=== PATIENT | male | born 1955 | race Caucasian/White ===

== ENCOUNTER 2016-11-07 10:22 | Observation (INO) ==
[2016-11-07] MEDS ORDERED: Ondansetron 4 MG/2 ML VIAL IVP PRN (10:44)
[2016-11-07] MEDS ORDERED: Naloxone 0.4 MG/ML INJ IVP PRN (10:44)
[2016-11-07] MEDS ORDERED: Acetaminophen 325 MG TABLET PO PRN (10:44)
[2016-11-07] MEDS ORDERED: *HR* Promethazine 25 MG/ML VIAL IVP PRN (10:44)
[2016-11-07] MEDS ORDERED: *HR* OxyCODONE Immed Rel 5 MG TABLET PO PRN (10:44)
[2016-11-07] MEDS ORDERED: *HR* HYDROmorphone (PF) 1 MG/ML SYRINGE IVP PRN (10:44)
--- NOTE | 2016-11-07 10:50 | Urology History & Physical ---
Date of Encounter: 11/07/16 Time of Encounter: 10:48 Assessment and Plan (1) Ureteral calculus Current Visit: Yes Status: Acute 61 year old man with a left distal ureteral stone and a left proximal ureteral stone. He has been admitted for pain control. We will see how he does overnight. If his pain persists, we will coordinate a left ureteroscopy, laser lithotripsy and a staged left proximal ureteroscopy and stone extraction with left ureteral stent placement. He was informed of the risks of the surgery which include but are not limited to bleeding, infection, injury to other structures, need for further procedures, incomplete treatment, need for stent, stent irritation, need for nephrostomy tube, need for repair, and the risk of anesthesia. He is willing to proceed. History of Present Illness Chief complaint: Left flank pain HPI: Mr. Mtz is a 61 year old male presents with left flank pain. It started 3- 4 days ago. He has a known history of stones and had left ureteroscopy previously. His pain returned this week. He went to the [facility] and had a CT scan which showed a 6mm distal left ureteral stone. His pain is in the left flank and radiates to the groin. He has noted some nausea. He is still having severe pain and was admitted from my office. Past Med Surg Social Fam HX - Past Medical History Medical history: hyperlipidemia, hypertension, myocardial infarction Psychiatric history: no psych history - Past Surgical History Surgical History: angioplasty/stent - Social History Smoking Status: Current every day smoker Smokeless Tobacco Status: No Alcohol use: none Drug use: none - Family History Mother Hx Family Genitourinary Disorders: No (no stones) Medications and Allergies Aspirin Enteric Coated [Aspirin EC] 81 mg PO DAILY 01/07/16 [History] Atorvastatin [Lipitor] 80 mg PO HS 01/07/16 [History] Clopidogrel [Plavix] 75 mg PO DAILY 01/07/16 [History] Docusate [Colace] 100 mg PO BID #60 capsule 01/07/16 [Rx] Metoprolol XL (24 HR) Succ [Toprol Xl] 25 mg PO HS 01/07/16 [History] Oxycodone HCl/Acetaminophen [Percocet 5-325 mg Tablet] 1 tab PO Q6H PRN [History] Allergies No Known Allergies Allergy (Unverified 01/01/16 11:11) Review of Systems - Constitutional no chills, no fever(s) - EENT Nose, mouth and throat: no dizziness - Cardiovascular no chest pain - Respiratory no dyspnea - Gastrointestinal nausea, no vomiting - Genitourinary flank pain, no hematuria - Musculoskeletal no back pain - Integumentary no erythema, no rash - Neurological no weakness - Psychiatric no suicidal ideation - Hematologic/Lymphatic no easy bleeding - Allergic/Immunologic no wheezing Exam - General physical appearance Present: well developed, well nourished, no distress - Eyes Absent: icteric - ENT Present: normal nares - Neck Present: trachea midline - Respiratory Present: normal respiratory effort - Cardiovascular Cardiovascular exam IM: RRR - Abdomen Abdomen: Present: soft - Genitourinary normal penis with no external lesions Urology Results - Labs 11/07/16 10:58 11/07/16 10:58 All other labs normal. - Imaging CT scan - abdomen: report reviewed, image reviewed CT scan - pelvis: report reviewed, image reviewed
[2016-11-07] MEDS ORDERED: 0.9 % Sodium Chloride 1,000 ML IVC ONE (10:52)
[2016-11-07 11:05] LABS: Basophils % 0.4 %; Eosinophils # 0.1 K/mcL (0.0-0.6); Eosinophils % 1.3 %; Hematocrit 39.8 % (37.5-50.1); Hemoglobin 13.7 g/dL (12.9-16.9); Immature Granulocytes % 0.4 % (0-4); Immature Platelets 9.3 % (1.1-6.1); Lymphocytes # 1.7 K/mcL (0.6-4.6); Lymphocytes % 16.9 %; Mean Corpuscular HGB Conc 34.4 g/dL (31.6-35.5); Mean Corpuscular Hemoglobin 30.2 pg (28.0-33.3); Mean Corpuscular Volume 87.7 fL (83.0-100.0); Mean Platelet Volume 11.1 fL (9.4-12.4); Neutrophils # 7.2 K/mcL (1.6-8.9); Platelet Count 179 K/mcL (140-400); Red Blood Count 4.54 M/mcL (4.19-5.50); Red Cell Distribution Width 13.2 % (11.5-14.5)
[2016-11-07 11:17] LABS: BUN/Creatinine Ratio 11 (6-26); Blood Urea Nitrogen 15 mg/dL (8-26); Calcium 9.2 mg/dL (8.6-10.8); Carbon Dioxide 20 mEq/L (19-29); Chloride 100 mEq/L (98-109); Glucose 113 mg/dL (70-99); Osmolality,Calculated 282 (280-300); Sodium 135 mEq/L (136-145); eGFR For African Americans > 60 (> 60); eGFR For Non-African Americans 56 (> 60)
[2016-11-07] MEDS: 0.9 % Sodium Chloride 1,000 ML IVC SCH ×2 (12:35→21:50)
--- NOTE | 2016-11-07 21:26 | Anesthesia Evaluation PreOp ---
Date of Encounter: 11/07/16 Time of Encounter: 21:27 - Past History Planned Operation: L ureteroscopic stone extraction, stent Cardiac History: DC (inferior wall STEMI 2013 -- 4 stents to RCA (severe 1- vessel CAD per cardiac cath 2013)), HTN, Hyperlipidemia, Cardiac Stent (4 stents RCA 2013), Other (Good functional capacity, can achieve > 4 METS) Pulmonary History: Smoker (occassional) [employer] History: Denies Any Significant HX Other Medical History: Renal (renal stones) Anesthesia History: No Prior Anesthetic Complications, Past Anesthesia (L ureteroscopic stone extraction/stent 01/2016) Alcohol Use: none Drug use: none Medications and Allergies Aspirin Enteric Coated [Aspirin EC] 81 mg PO DAILY 01/07/16 [History] Atorvastatin [Lipitor] 80 mg PO HS 01/07/16 [History] Clopidogrel [Plavix] 75 mg PO DAILY 01/07/16 [History] Docusate [Colace] 100 mg PO BID #60 capsule 01/07/16 [Rx] Metoprolol XL (24 HR) Succ [Toprol Xl] 25 mg PO HS 01/07/16 [History] Oxycodone HCl/Acetaminophen [Percocet 5-325 mg Tablet] 1 tab PO Q6H PRN [History] Allergies No Known Allergies Allergy (Unverified 01/01/16 11:11) - Meds/Allergy Pre-op Review Medications Reviewed: Yes Allergies Reviewed: Yes Beta Blockers on Current Med List: Yes (metoprolol XL) Anesthesia Results - Labs 11/07/16 10:58 11/07/16 10:58 - Imaging EKG: report reviewed, image reviewed (SB with short MD) Anesthesia Exam Last Vital Signs Temp 98.5 F 11/07/16 19:23 Pulse 65 11/07/16 19:23 Resp 14 11/07/16 19:23 BP 129/69 11/07/16 19:23 Pulse Ox 95 11/07/16 19:23 Weight: 72 kg - HEENT Pupil (Motor): Pupils equal, EOMI Mallampati: III Teeth: Normal Oral Opening: Greater than 3 - [employer] LOC: Oriented [employer] Motor: Normal RUE, Normal LUE, Normal RLE, Normal LLE, Normal Face [employer] Sensory: Normal: RUE, LUE, RLE, LLE, Face - Cardiac Rhythm: Regular Murmur: None - Pulmonary Breath Sounds: bilateral Clear Respiratory Effort: Symmetrical Anesthesia Assess/Plan ASA Score: 3 Modified Fleming Scale for Level of Consciousness: Cooperative, oriented, and tranquil Anesthetic Plan: General Monitoring Plan: Standard Monitors Recovery Plan: PACU
[2016-11-08] MEDS: 0.9 % Sodium Chloride 1,000 ML IVC SCH (06:00)
[2016-11-08] MEDS: Levofloxacin 500 MG/100 ML 500 MG/100 ML BAG IVPB SCH ×2 (06:45→07:13)
--- NOTE | 2016-11-08 07:11 | Urology Progress Note ---
Date of Encounter: 11/08/16 Time of Encounter: 07:10 - Assessment and Plan (1) Ureteral calculus Current Visit: Yes Status: Acute Assessment and plan: Left distal ureteral stone, left renal stone. 1. Plan for distal left ureteroscopy followed by staged left ureteroscopy, laser lithotripsy and stent placement. All risks were informed. He is willing to proceed. Levaquin running currently. Progress Note Narrative: Patient hasn't passed stone overnight. He would like to proceed with left ureteroscopy today. Objective Initial Vital Signs Temp Pulse Resp BP Pulse Ox 97.4 F L 65 16 139/78 95 11/07/16 11:10 11/07/16 11:10 11/07/16 11:10 11/07/16 11:10 11/07/16 11:10 - General physical appearance Present: well developed, well nourished, no distress - Respiratory Present: normal respiratory effort - Abdomen Present: soft - Labs 11/07/16 10:58 11/07/16 10:58 Diabetes panel 11/07/16 Range/Units 10:58 Sodium 135 L (136-145) mEq/L Potassium 4.0 (3.5-4.5) mEq/L Chloride 100 (98-109) mEq/L Carbon Dioxide 20 (19-29) mEq/L BUN 15 (8-26) mg/dL Creatinine 1.31 H (0.72-1.25) mg/dL Glucose 113 H (70-99) mg/dL Calcium 9.2 (8.6-10.8) mg/dL Calcium panel 11/07/16 Range/Units 10:58 Calcium 9.2 (8.6-10.8) mg/dL Pituitary panel 11/07/16 Range/Units 10:58 Sodium 135 L (136-145) mEq/L Potassium 4.0 (3.5-4.5) mEq/L Chloride 100 (98-109) mEq/L Carbon Dioxide 20 (19-29) mEq/L BUN 15 (8-26) mg/dL Creatinine 1.31 H (0.72-1.25) mg/dL Glucose 113 H (70-99) mg/dL Calcium 9.2 (8.6-10.8) mg/dL Adrenal panel 11/07/16 Range/Units 10:58 Sodium 135 L (136-145) mEq/L Potassium 4.0 (3.5-4.5) mEq/L Chloride 100 (98-109) mEq/L Carbon Dioxide 20 (19-29) mEq/L BUN 15 (8-26) mg/dL Creatinine 1.31 H (0.72-1.25) mg/dL Glucose 113 H (70-99) mg/dL Calcium 9.2 (8.6-10.8) mg/dL Consult Discharge Plan - Plan Referrals: Ramone Hunter MD [Primary Care Provider] -
[2016-11-08] MEDS ORDERED: *HR* Propofol 200 MG/20 ML VIAL IVP ONE (07:19)
[2016-11-08] MEDS ORDERED: Lidocaine -MPF 2% 2 ML VIAL ONE (07:19)
[2016-11-08] MEDS ORDERED: *HR* FentaNYL (PF) 100 MCG/2 ML VIAL ONE (07:19)
[2016-11-08] MEDS ORDERED: Metoprolol XL (24 HR) Succ 25 MG TAB.ER.24H PO STA (07:23)
[2016-11-08] MEDS ORDERED: Albuterol 2.5 MG/3 ML NEBULIZER ONE (07:39)
[2016-11-08] MEDS ORDERED: Albuterol 2.5 MG/3 ML NEBULIZER IH ONE (07:44)
[2016-11-08] MEDS ORDERED: *HR* HYDROmorphone (PF) 1 MG/ML SYRINGE IVP PRN ×2 (08:22→09:33)
[2016-11-08] MEDS ORDERED: *HR* Meperidine 25 MG/ML SYRINGE IVP PRN (08:22)
[2016-11-08] MEDS ORDERED: Ondansetron 4 MG/2 ML VIAL IVP ONE (08:22)
[2016-11-08] MEDS ORDERED: *HR* Promethazine 25 MG/ML VIAL IVP PRN ×2 (08:22→09:33)
[2016-11-08] MEDS ORDERED: Ringers Solution, Lactated 1,000 ML IVC SCH (08:30)
[2016-11-08] MEDS ORDERED: EPHEDrine 50 MG/ML VIAL ONE (08:31)
--- NOTE | 2016-11-08 08:35 | Operative Note ---
Date of procedure: 11/08/16 Pre-op diagnosis: Left ureteral stone, left renal stone Post-op diagnosis: same Procedure: Left distal ureteroscopy, laser lithotripsy, basket stone extraction, and stent placement. Staged left proximal ureteroscopy and stone extraction. Implants: 4.8 Guine[place] x 26cm JJ stent. Complications: none. Anesthesia: GETA Surgeon: Heraclio Sanchez Specimen: left ureteral stone Condition: stable Disposition: PACU Procedure in Detail: Indications: Mr. Mtz is a 61-year-old gentleman who has a history of left flank pain. A CT scan showed a 5 mm stone in the distal left ureter. In addition he had a left renal stone.He elected to undergo a left ureteroscopy, laser lithotripsy, and stent placement. He is aware of the risks of the procedure including but not limited to bleeding, infection, injury to other structures, need for further procedures, stent irritation, and the risk of anesthesia. He is willing to proceed. Procedure: After informed consent was obtained the patient was brought back to the operating room and placed in supine position. A time out was performed. General anesthesia was administered and an LMA was placed. He was then placed in the lithotomy position. He was prepped and draped in the usual sterile fashion. Cystoscopy was performed. The anterior urethra was normal. There was no evidence of bladder tumors. The ureteral orifices were in the normal orthotopic position. The Zip wire was placed in the left ureteral orifice and brought into the kidney under fluoroscopic guidance. the ureter was gently dilated with the 8/10 Guinean ureteral dilator. I then advanced the semirigid ureteroscope into the ureter. The stone was fragmented using the 200 micron laser fiber into small pieces.the stone fragments were basket extracted. a sensor wire was then placed up the ureteroscope and ureteroscope was removed. The flexible ureteroscope was advanced into the kidney under fluoroscopic guidance. A stone was seen in the upper pole calyx. This was basket extracted. A 4.8 [place]inean by 26cm JJ stent was then placed with good curl seen in the kidney and the bladder. The dangle string left intact. The bladder was drained. The stent string was secured to the penis with Tegaderm. The patient was then awakened from general anesthesia and brought to recovery room in good condition. All sponge, needle, and instrument counts were correct.
--- NOTE | 2016-11-08 08:49 | Discharge Summary ---
Date of Encounter: 11/08/16 Time of Encounter: 08:47 - Discharge Diagnosis (1) Ureteral calculus Priority: Primary Status: Acute - Discharge Medications Prescriptions: Docusate [Colace] 100 mg PO BID #60 capsule Oxycodone HCl/Acetaminophen [Percocet 5-325 mg Tablet] 1 each PO Q4H PRN #25 tablet PRN Reason: Pain Phenazopyridine HCl [Pyridium] 200 mg PO TIDAC #12 tab Home Medications: Aspirin Enteric Coated [Aspirin EC] 81 mg PO DAILY 01/07/16 [History] Atorvastatin [Lipitor] 80 mg PO HS 01/07/16 [History] Clopidogrel [Plavix] 75 mg PO DAILY 01/07/16 [History] Docusate [Colace] 100 mg PO BID #60 capsule 01/07/16 [Rx] Metoprolol XL (24 HR) Succ [Toprol Xl] 25 mg PO HS 01/07/16 [History] Oxycodone HCl/Acetaminophen [Percocet 5-325 mg Tablet] 1 tab PO Q6H PRN [History] Docusate [Colace] 100 mg PO BID #60 capsule 11/08/16 [Rx] Oxycodone HCl/Acetaminophen [Percocet 5-325 mg Tablet] 1 each PO Q4H PRN #25 tablet 11/08/16 [Rx] Phenazopyridine HCl [Pyridium] 200 mg PO TIDAC #12 tab 11/08/16 [Rx] Allergies/Adverse Reactions: Allergies No Known Allergies Allergy (Unverified 01/01/16 11:11) Labs on day of discharge: Labs from last 24 hours 11/07/16 11/07/16 10:58 10:58 WBC 10.1 RBC 4.54 Hgb 13.7 Hct 39.8 MCV 87.7 MCH 30.2 MCHC 34.4 RDW 13.2 Plt Count 179 MPV 11.1 Immature Gran % 0.4 Seg Neutrophils % 71.0 Lymphocytes % 16.9 Monocytes % 10.0 Eosinophils % 1.3 Basophils % 0.4 Neutrophils # 7.2 Lymphocytes # 1.7 Monocytes # 1.0 Eosinophils # 0.1 Basophils # 0.0 Immature Plt Fraction 9.3 H Sodium 135 L Potassium 4.0 Chloride 100 Carbon Dioxide 20 BUN 15 Creatinine 1.31 H Est GFR ( Amer) > 60 Est GFR (Non-Af Amer) 56 L BUN/Creatinine Ratio 11 Glucose 113 H Calculated Osmolality 282 Calcium 9.2 Date of admission: 11/07/16 10:27 Primary care physician: Ramone Hunter MD Discharging clinician: Heraclio Sanchez Anticipated date of discharge: 11/08/16 - Patient Status Disposition: Home, Self-Care Condition: Good Functional capacity at discharge: independent ambulation Overall status at discharge: patient is progressing back to baseline - Discharge Instructions Follow Up With: Heraclio Sanchez MD [Partnered Physician] - (2-3 weeks.) Additional Instructions: 1. The patient can remove stent in 5 days by pulling up on the string. 2. He should expect to feel flank pain with voiding. 3. The patient should call for any fevers, chills, nausea, emesis, or uncontrolled pain. 4. Please provide a work excuse if necessary for up to 1 week off. 5. He can follow-up with me in 2-3 weeks. - Diet and Activity Activity: increase activity as tolerated Diet: advance to your usual diet - Hospital Course Hospital course: Mr. Mtz is a 61 year old male who presented with left flank pain. He was admitted as he had a left distal ureteral stone. On November 08, 2016 he underwent an uneventful left ureteroscopy, laser lithotripsy, and stent placement. He did well after surgery and was discharged home later that day. - Time Spent with Patient Total time spent providing and/or coordinating discharge services: Less than 30 minutes Exam Initial Vital Signs Temp Pulse Resp BP Pulse Ox 97.4 F L 65 16 139/78 95 11/07/16 11:10 11/07/16 11:10 11/07/16 11:10 11/07/16 11:10 11/07/16 11:10 - General physical appearance Present: well developed, well nourished, no distress - Eyes Absent: icteric - ENT Present: normal nares - Neck Present: trachea midline - Respiratory Present: normal respiratory effort - Cardiovascular Cardiovascular exam IM: RRR - Abdomen Abdomen: Present: soft
--- NOTE | 2016-11-08 09:22 | Anesthesia Evaluation Post Op ---
Date of Encounter: 11/08/16 Time of Encounter: 09:20 - Vital Signs Vital Signs: vss - Lungs Lungs: Clear Ascult./Percussion - Airway Airway: Non-obstructed - Cardiovascular Baseline Rhythm - Mental Status Mental Status: Alert & Oriented, Answers Appropriately - Pain Pain Scale used: Lc (Faces) - Nausea Vomiting Nausea Vomiting: Not Present - Discharge PostOp Status: Transfer Patient to floor
[2016-11-08] MEDS ORDERED: Acetaminophen 325 MG TABLET PO PRN (09:33)
[2016-11-08] MEDS ORDERED: Ondansetron 4 MG/2 ML VIAL IVP PRN (09:33)
[2016-11-08] MEDS ORDERED: Aspirin Enteric Coated 81 MG Tablet PO SCH (09:33)
[2016-11-08] MEDS ORDERED: *HR* OxyCODONE Immed Rel 5 MG TABLET PO PRN (09:33)
[2016-11-08] MEDS ORDERED: 0.9 % Sodium Chloride 1,000 ML IVC SCH (09:33)
[2016-11-08] MEDS ORDERED: Naloxone 0.4 MG/ML INJ IVP PRN (09:33)
[2016-11-09] MEDS ORDERED: Levofloxacin 500 MG/100 ML 500 MG/100 ML BAG IVPB SCH (09:00)
--- NOTE | 2016-11-10 08:49 | Electrocardiograph Report ---
[address] [place], [place] [address] Test Date: 2016-11-07 Pat Name: Luis Enrique Mtz Department: 115 Room: 3A53 Gender: M [employer]: : [id number] Requested By: Heraclio Sanchez Order Number: [id number] Reading MD: Philipp Garcia MD Measurements Intervals [place] Rate: 64 P: 62 VA: 153 QRS: 26 QRSD: 100 T: -14 QT: 420 QTc: 430 Interpretive Statements SINUS RHYTHM WITH OCCASIONAL VENTRICULAR PREMATURE COMPLEXES MINIMAL VOLTAGE CRITERIA FOR LVH INFERIOR MYOCARDIAL INFARCTION, OF INDETERMINATE AGE Electronically Signed On 11-10-2016 8:47:34 EDT by Philipp Garcia MD
[2016-11-11 10:31] VITALS: BP 133/76
== END 2016-11-08 11:01 | disposition home or self-care (01) ==
LOC: 3ANU
PROVIDERS: ADMIT Urology; ATTEND Urology